=== PATIENT | male | born 1945 | race Caucasian/White ===

== ENCOUNTER → 2020-08-23 | Outpatient (CLI) | payer MEDICARE, OTHER ==
[~2020-08-23] MED LIST: CELE200 PO; DUTA.5 PO; FINA5 PO; FISH1000 PO; FLUSAL2505 IH; FLUT.05NI; HYDCHL12.5 PO; LORA10ER PO; LOVA20 PO; METO25ER PO; MONT10T PO; PRAV10 PO; RANI150 PO; TAMS.4ER PO; WARF3 PO
[2020-08-23 15:32] LABS: Anion Gap 6 mmol/L (6-16); Blood Urea Nitrogen 21 mg/dL (8-24); Bun/Creatinine Ratio 23.1 (12.0-20.0); CO2, Blood 28 mmol/L (21-32); Calcium, Blood 8.5 mg/dL (8.5-10.1); Chloride, Blood 107 mmol/L (98-108); Creatinine, Blood 0.91 mg/dL (0.60-1.20); Glomerular Filtration Rate >60 (60-); Glucose, Blood 95 mg/dL (70-99); Potassium, Blood 4.4 mmol/L (3.5-5.5); Sodium, Blood 141 mmol/L (136-145)
== END | disposition home or self-care (01) ==
LOC: LAB 15:23 → LAB SHORT 15:23
PROVIDERS: Family Medicine
DX: R60.0 Localized edema (principal)
CPT/HCPCS: 80048

== ENCOUNTER → 2021-12-19 | Outpatient (CLI) | payer MEDICARE, OTHER ==
[2021-12-19 13:26] LABS: BASOPHILS ABSOLUTE AUTO 0.03 K/mm3 (0.00-0.23); BASOPHILS PERCENT AUTO 0 % (0-2); EOSINOPHILS ABSOLUTE AUTO 0.03 K/mm3 (0.00-0.68); EOSINOPHILS PERCENT AUTO 0 % (0-6); Hematocrit 41.4 % (37.0-53.0); Hemoglobin 13.9 g/dL (13.5-17.5); IMMATURE GRAN PERCENT AUTO 1 % (0-1); LYMPHOCYTES ABSOLUTE AUTO 0.27 K/mm3 (0.84-5.20); LYMPHOCYTES PERCENT AUTO 2 % (21-46); MONOCYTES ABSOLUTE AUTO 0.76 K/mm3 (0.16-1.47); MONOCYTES PERCENT AUTO 6 % (4-13); Mean Corpuscular HGB Conc 33.6 g/dL (31.5-36.5); Mean Corpuscular Volume 86 fL (80-100); Mean Platelet Volume 10.6 fL (9.1-12.4); NEUTROPHILS PERCENT AUTO 91 % (41-73); Platelet Count 150 K/mm3 (150-400); RDW Coefficient Variation 14.7 % (11.7-14.2); RDW Standard Deviation 46.5 fL (35.1-46.3); Red Blood Cell Count 4.79 M/mm3 (4.30-5.90); White Blood Cell Count 13.19 K/mm3 (4.00-11.30)
[2021-12-19 13:29] LABS: Albumin, Blood 3.6 g/dL (3.4-5.0); Albumin/Globulin Ratio 1.1 (0.8-1.8); Bilirubin, Total 0.4 mg/dL (0.1-1.0); Bun/Creatinine Ratio 13.5 (12.0-20.0); Creatinine, Blood 0.96 mg/dL (0.60-1.20); Globulin, Blood 3.2 g/dL (2.2-4.0); Potassium, Blood 4.1 mmol/L (3.5-5.5); Total Protein, Blood 6.8 g/dL (6.4-8.2)
== END | disposition home or self-care (01) ==
LOC: LAB SHORT 13:13
PROVIDERS: Chiropractor
DX: R06.00 Dyspnea, unspecified (principal)
CPT/HCPCS: 80053; 85025

== ENCOUNTER 2022-04-23 14:41 | Emergency (ER) | payer MEDICARE, OTHER ==
[~2022-04-23] VITALS: Ht 177.8 cm; Wt 143.3 kg
[2022-04-23 15:21] LABS: BASOPHILS ABSOLUTE AUTO 0.04 K/mm3 (0.00-0.23); BASOPHILS PERCENT AUTO 1 % (0-2); EOSINOPHILS ABSOLUTE AUTO 0.08 K/mm3 (0.00-0.68); EOSINOPHILS PERCENT AUTO 1 % (0-6); Hematocrit 43.8 % (37.0-53.0); Hemoglobin 14.3 g/dL (13.5-17.5); IMMATURE GRAN ABSOLUTE AUTO 0.03 K/mm3 (0.00-0.10); IMMATURE GRAN PERCENT AUTO 0 % (0-1); LYMPHOCYTES ABSOLUTE AUTO 0.73 K/mm3 (0.84-5.20); LYMPHOCYTES PERCENT AUTO 10 % (21-46); MONOCYTES ABSOLUTE AUTO 0.51 K/mm3 (0.16-1.47); MONOCYTES PERCENT AUTO 7 % (4-13); Mean Corpuscular HGB 29.1 pg (26.0-34.0); Mean Corpuscular HGB Conc 32.6 g/dL (31.5-36.5); Mean Corpuscular Volume 89 fL (80-100); Mean Platelet Volume 10.6 fL (9.1-12.4); NEUTROPHILS ABSOLUTE AUTO 6.23 K/mm3 (1.96-9.15); NEUTROPHILS PERCENT AUTO 82 % (41-73); Platelet Count 197 K/mm3 (150-400); RDW Coefficient Variation 15.5 % (11.7-14.2); RDW Standard Deviation 50.4 fL (35.1-46.3); Red Blood Cell Count 4.92 M/mm3 (4.30-5.90); White Blood Cell Count 7.62 K/mm3 (4.00-11.30)
[2022-04-23 15:40] LABS: Albumin, Blood 3.9 g/dL (3.4-5.0); Albumin/Globulin Ratio 1.1 (0.8-1.8); Bilirubin, Total 0.3 mg/dL (0.1-1.0); Bun/Creatinine Ratio 19.5 (12.0-20.0); Creatinine, Blood 1.18 mg/dL (0.60-1.20); Globulin, Blood 3.4 g/dL (2.2-4.0); Potassium, Blood 4.4 mmol/L (3.5-5.5); Total Protein, Blood 7.3 g/dL (6.4-8.2)
[2022-04-23] MEDS ORDERED: Prednisone10 MG PO (17:21)
[2022-04-23] MEDS ORDERED: ABIRATERONE AC250 MG PO (17:22)
[2022-04-23] MEDS ORDERED: ERLEADA60 MG PO (17:22)
[2022-04-23] MEDS ORDERED: LISI20 PO (17:25)
[2022-04-23] MEDS ORDERED: Lovastatin10 MG PO (17:25)
[2022-04-23] MEDS ORDERED: MELO7.5 PO (17:26)
[2022-04-23] MEDS ORDERED: FURO40 PO (17:27)
[2022-04-23] MEDS ORDERED: SPIRONOLACTONE25 MG PO (17:27)
[2022-04-23] MEDS ORDERED: METO50ER PO (17:27)
[2022-04-23] MEDS ORDERED: BUMETANIDE2 M6 PO (17:28)
[2022-04-23 18:14] LABS: International Normalized Ratio 1.04; Prothrombin Time Results 10.9 Sec (9.7-11.5)
== END 2022-04-23 19:20 | disposition home or self-care (01) ==
LOC: ER 14:41
PROVIDERS: Emergency Medicine; Physician Assistant
DX: R10.13 Epigastric pain (principal); R10.11 Right upper quadrant pain; I10 Essential (primary) hypertension; E66.9 Obesity, unspecified; E78.00 Pure hypercholesterolemia, unspecified
CPT/HCPCS: 36415; 71045; 76705; 80053; 83690; 84484; 85025; 85610; 93005; 93010; 99285-25

== ENCOUNTER → 2023-01-15 | Outpatient (CLI) | payer MEDICARE ==
[~2023-01-15] MED LIST changes: +ABIRATERONE AC250 MG PO; +BUMETANIDE2 M6 PO; +ERLEADA60 MG PO; +FURO40 PO; +LISI20 PO; +Lovastatin10 MG PO; +MELO7.5 PO; +METO50ER PO; +Prednisone10 MG PO; +SPIRONOLACTONE25 MG PO
== END | disposition home or self-care (01) ==
LOC: PLD 07:19 → LAB 07:19 → LAB SHORT 07:19
DX: E04.2 Nontoxic multinodular goiter (principal); R59.0 Localized enlarged lymph nodes
CPT/HCPCS: 88173

== ENCOUNTER 2024-12-06 20:09 | Emergency (ER) | payer MEDICARE ==
[~2024-12-06] VITALS: Ht 172.7 cm; Wt 117.9 kg
[~2024-12-06 20:09] MED LIST changes: +Acetaminophen650 M1 PO; +CALCIUM 1,0001 EAC1 PO; +Children's Clari5 MG PO; +ELIQUIS2.5 MG PO; +FISH OIL PO; -FLUT.05NI; +Flonase 0.05% N16 GM; +LUPRON INJ; +MAGNESIUM OXID500 MG PO; +MULVITA PO; +OMEP20ER PO; +OSTEO BI FLEX PO; +TORSE20 PO; +VIT B12 PO; +VITAMIN D310 MC4 PO; +ZADITOR5 M1 BOTHEYES; +ZINC15 PO
[2024-12-06 21:11] VITALS: BP 192/76
== END 2024-12-06 22:12 | disposition home or self-care (01) ==
LOC: ER 20:09
DX: T83.091A Other mechanical complication of indwelling urethral catheter, initial encounter (principal); I10 Essential (primary) hypertension; Z79.899 Other long term (current) drug therapy; Z79.2 Long term (current) use of antibiotics; Z79.01 Long term (current) use of anticoagulants; Z87.891 Personal history of nicotine dependence
CPT/HCPCS: 99282-25

== ENCOUNTER 2025-01-13 01:04 | Emergency (ER) | payer MEDICARE ==
[~2025-01-13] VITALS: Ht 172.7 cm; Wt 113.4 kg
[2025-01-13 03:15] VITALS: BP 101/52
== END 2025-01-13 03:35 | disposition home or self-care (01) ==
LOC: ER 01:04
DX: R31.9 Hematuria, unspecified (principal); Z46.6 Encounter for fitting and adjustment of urinary device; Z51.5 Encounter for palliative care; I10 Essential (primary) hypertension; E78.00 Pure hypercholesterolemia, unspecified; Z87.891 Personal history of nicotine dependence; Z79.52 Long term (current) use of systemic steroids; Z79.51 Long term (current) use of inhaled steroids; Z79.899 Other long term (current) drug therapy
CPT/HCPCS: 51700; 51798; 99283-25